=== PATIENT | male | born 1965 | race Caucasian/White ===

== ENCOUNTER 2020-03-24 02:17 | Inpatient (IN) | payer OTHER ==
[~2020-03-24] VITALS: Ht 175.3 cm; Wt 64.0 kg
[~2020-03-24 02:17] MED LIST: ANTIVERT 25MG T25 MG PO; ASPIRIN 325MG325 MG PO; BUTALB-ACETAMI1 EAC1 PO; CAMBIA50 MG PO; CIPRO500 MG PO; FIORICET TAB1 EA PO; GLIPIZIDE XL5 MG PO; GLUCOPHAGE XR500 MG PO; IMDUR ER TAB 3030 MG PO; IMDUR ER TAB 6060 MG PO; IPRAT-ALBUT 0.5-3 ML NEB; JARDIANCE25 MG PO; LANTUS100 UNIT/1 SQ; LEVOFLOXACIN250 MG PO; LIORESAL TAB 1010 MG PO; LISINOPRIL10 MG PO; LISINOPRIL20 MG PO; LOPRESSOR 25 MG25 MG PO; METFORMIN HCL850 MG PO; NEURONTIN800 MG PO; NITROGLYCERIN0.4 MG SL; NORCO 7.5-3251 EACH PO; NOVOLOG 10100 UNITS1 SQ; OMNICEF 300 MG300 MG PO; PHENERGAN 25 MG25 M1 PO; PYRIDIUM200 MG PO; REMERON30 MG PO; SYMBICORT 16010.2 GM NEB; TOPAMAX50 MG PO; TRAZODONE HCL100 MG PO; TRESIBA FL100 UNIT/1 SQ; TRULICITY0.75 MG/0. SL; TRULICITY0.75 MG/0. SQ; XARELTO 10 MG T10 MG PO; ZANTAC 7575 MG PO; ZANTAC300 MG PO; ZOCOR5 MG PO; ZOFRAN4 MG PO; ZOLOFT50 MG PO
[2020-03-24 02:53] LABS: HEMOGLOBIN 18.1 gm/dl (14.0-17.5); RED BLOOD COUNT 5.81 M/UL (4.20-5.50); WHITE BLOOD COUNT 9.4 K/UL (4.5-11.0)
[2020-03-24 03:27] LABS: BUN/CREATININE RATIO 30 (0-10)
[2020-03-24] MEDS ORDERED: BUTALB-ACETAMI1 EACH PO (05:24)
[2020-03-24 05:59] LABS: HEMOGLOBIN 17.1 gm/dl (14.0-17.5); RED BLOOD COUNT 5.51 M/UL (4.20-5.50)
[2020-03-24 06:01] LABS: WHITE BLOOD COUNT 12.5 K/UL (4.5-11.0)
[2020-03-24 06:30] LABS: BUN/CREATININE RATIO 32 (0-10)
[2020-03-25 04:54] LABS: WHITE BLOOD COUNT 9.2 K/UL (4.5-11.0)
[2020-03-25 04:55] LABS: HEMOGLOBIN 14.6 gm/dl (14.0-17.5); RED BLOOD COUNT 4.81 M/UL (4.20-5.50)
[2020-03-25] MEDS ORDERED: LIPITOR80 MG PO (06:47)
[2020-03-25] MEDS ORDERED: NUEDEXTA 20-101 EACH PO (07:50)
[2020-03-25] MEDS ORDERED: METHYLPHENIDATE10 M1 PO (18:19)
[2020-03-26 03:49] LABS: RED BLOOD COUNT 4.93 M/UL (4.20-5.50); WHITE BLOOD COUNT 7.2 K/UL (4.5-11.0)
[2020-03-26 04:10] LABS: BUN/CREATININE RATIO 29 (0-10)
[2020-03-26] MEDS ORDERED: BRILINTA90 MG PO (13:56)
[2020-03-26] MEDS ORDERED: IMDUR ER TAB 6060 MG PO (13:56)
[2020-03-26] MEDS ORDERED: COREG3.125 MG PO (13:56)
[2020-03-26] MEDS ORDERED: ASPIRIN EC81 MG PO (14:46)
== END 2020-03-26 16:06 | disposition home or self-care (01) | DRG 246 ==
LOC: ER1 02:17 → CDU 02:38 → CCU 05:24 → M/S 03-25 16:30
PROVIDERS: Emergency Medicine; Internal Medicine; ADMIT Internal Medicine Interventional Cardiology
PROC: 027034Z Dilation of Coronary Artery, One Artery with Drug-eluting Intraluminal Device, Percutaneous Approach (ICD-10-PCS; principal; 2020-03-24)
PROC: 4A023N7 Measurement of Cardiac Sampling and Pressure, Left Heart, Percutaneous Approach (ICD-10-PCS; 2020-03-24)
PROC: B211YZZ Fluoroscopy of Multiple Coronary Arteries using Other Contrast (ICD-10-PCS; 2020-03-24)
PROC: 4A0335C Measurement of Arterial Flow, Coronary, Percutaneous Approach (ICD-10-PCS; 2020-03-24)
PROC: B24BZZZ Ultrasonography of Heart with Aorta (ICD-10-PCS; 2020-03-25)
DX: T82.855A Stenosis of coronary artery stent, initial encounter (principal); I21.3 ST elevation (STEMI) myocardial infarction of unspecified site; N17.9 Acute kidney failure, unspecified; E87.1 Hypo-osmolality and hyponatremia; I50.32 Chronic diastolic (congestive) heart failure; Z20.822 Contact with and (suspected) exposure to COVID-19; E11.40 Type 2 diabetes mellitus with diabetic neuropathy, unspecified; I11.0 Hypertensive heart disease with heart failure; F11.90 Opioid use, unspecified, uncomplicated; M54.9 Dorsalgia, unspecified; E11.51 Type 2 diabetes mellitus with diabetic peripheral angiopathy without gangrene; Z79.82 Long term (current) use of aspirin; Z79.4 Long term (current) use of insulin; Z79.899 Other long term (current) drug therapy; Z86.718 Personal history of other venous thrombosis and embolism; Z95.1 Presence of aortocoronary bypass graft; Z88.2 Allergy status to sulfonamides; Z88.8 Allergy status to other drugs, medicaments and biological substances
CPT/HCPCS: ECHO; 36415; 71045; 80048; 80053; 82550; 82553; 82565; 82962; 83036; 83605; 83690; 83874; 84484; 85025; 85027; 85347; 85610; 85730; 87635; 93005; 93306; 96374; 99152; 99153; 99285; C1725; C1769; C1874; C1887; J0360; J0461; J1644; J1650; J2270; J3246; J7030; J7040; Q9965

== ENCOUNTER 2020-04-02 03:32 | Inpatient (IN) | payer OTHER ==
[~2020-04-02] VITALS: Ht 175.3 cm; Wt 78.1 kg
[~2020-04-02 03:32] MED LIST changes: +ASPIRIN EC81 MG PO; +BRILINTA90 MG PO; +BUTALB-ACETAMI1 EACH PO; +COREG3.125 MG PO; +LIPITOR80 MG PO; +METHYLPHENIDATE10 M1 PO; +NUEDEXTA 20-101 EACH PO
[2020-04-02 04:01] LABS: HEMOGLOBIN 16.8 gm/dl (14.0-17.5); RED BLOOD COUNT 5.41 M/UL (4.20-5.50); WHITE BLOOD COUNT 8.4 K/UL (4.5-11.0)
[2020-04-02 04:27] LABS: BUN/CREATININE RATIO 30 (0-10)
[2020-04-02] MEDS ORDERED: LOPRESSOR 25 MG25 MG PO (09:59)
[2020-04-02 23:16] LABS: HEMOGLOBIN 15.2 gm/dl (14.0-17.5); RED BLOOD COUNT 4.96 M/UL (4.20-5.50); WHITE BLOOD COUNT 12.3 K/UL (4.5-11.0)
[2020-04-02 23:33] LABS: BUN/CREATININE RATIO 26 (0-10)
[2020-04-03 05:00] LABS: HEMOGLOBIN 14.4 gm/dl (14.0-17.5); RED BLOOD COUNT 4.68 M/UL (4.20-5.50)
[2020-04-03 05:35] LABS: BUN/CREATININE RATIO 30 (0-10)
[2020-04-04 05:00] LABS: HEMOGLOBIN 14.6 gm/dl (14.0-17.5); RED BLOOD COUNT 4.96 M/UL (4.20-5.50); WHITE BLOOD COUNT 9.8 K/UL (4.5-11.0)
[2020-04-04 05:36] LABS: BUN/CREATININE RATIO 20 (0-10)
[2020-04-04] MEDS ORDERED: NITROGLYCERIN0.4 MG SL (10:05)
[2020-04-04] MEDS ORDERED: HUMALOG 10100 UNITS/ SC (10:10)
[2020-04-04] MEDS ORDERED: IMDUR ER TAB 3030 MG PO (10:28)
== END 2020-04-04 14:24 | disposition home or self-care (01) | DRG 246 ==
LOC: ER1 03:32 → CDU 05:59 → PROG CARE 09:31 → 2 EAST 17:16 → MED SURG 4 04-03 18:14
PROVIDERS: Emergency Medicine; Family Medicine; Internal Medicine; ADMIT Internal Medicine
PROC: B211YZZ Fluoroscopy of Multiple Coronary Arteries using Other Contrast (ICD-10-PCS; principal; 2020-04-02)
PROC: 4A023N7 Measurement of Cardiac Sampling and Pressure, Left Heart, Percutaneous Approach (ICD-10-PCS; principal; 2020-04-02)
PROC: 027034Z Dilation of Coronary Artery, One Artery with Drug-eluting Intraluminal Device, Percutaneous Approach (ICD-10-PCS; principal; 2020-04-02)
PROC: 3E02340 Introduction of Influenza Vaccine into Muscle, Percutaneous Approach (ICD-10-PCS; 2020-04-02)
DX: I97.190 Other postprocedural cardiac functional disturbances following cardiac surgery (principal); I21.A9 Other myocardial infarction type; I50.32 Chronic diastolic (congestive) heart failure; T82.855A Stenosis of coronary artery stent, initial encounter; T82.897A Other specified complication of cardiac prosthetic devices, implants and grafts, initial encounter; I25.110 Atherosclerotic heart disease of native coronary artery with unstable angina pectoris; Z95.5 Presence of coronary angioplasty implant and graft; I25.10 Atherosclerotic heart disease of native coronary artery without angina pectoris; Z95.1 Presence of aortocoronary bypass graft; I10 Essential (primary) hypertension; I25.82 Chronic total occlusion of coronary artery; E78.5 Hyperlipidemia, unspecified; F48.2 Pseudobulbar affect; I11.0 Hypertensive heart disease with heart failure; G89.29 Other chronic pain; E11.65 Type 2 diabetes mellitus with hyperglycemia; Z79.899 Other long term (current) drug therapy; Z79.4 Long term (current) use of insulin; Z79.01 Long term (current) use of anticoagulants; Z79.82 Long term (current) use of aspirin; I45.10 Unspecified right bundle-branch block; I73.9 Peripheral vascular disease, unspecified; Z86.14 Personal history of Methicillin resistant Staphylococcus aureus infection; Z88.2 Allergy status to sulfonamides; Z88.8 Allergy status to other drugs, medicaments and biological substances; Z83.3 Family history of diabetes mellitus; Z82.49 Family history of ischemic heart disease and other diseases of the circulatory system; Z20.822 Contact with and (suspected) exposure to COVID-19; Z95.820 Peripheral vascular angioplasty status with implants and grafts; I25.2 Old myocardial infarction; Z23 Encounter for immunization
CPT/HCPCS: ECHO; 36415; 71045; 80048; 80053; 82550; 82553; 82962; 83690; 83874; 84484; 85025; 85027; 85347; 85730; 87635; 90471; 90686; 93005; 93306; 96365; 96368; 96375; 96376; 97162; 99285; C1725; C1769; C1874; C1887; C9600; G0008; J1170; J1644; J1650; J2270; J2405; J7030; J7040

== ENCOUNTER 2021-02-15 08:49 | Emergency (ER) | payer OTHER ==
[~2021-02-15 08:49] MED LIST changes: +HUMALOG 10100 UNITS/ SC
[2021-02-15 10:33] LABS: RED BLOOD COUNT 5.82 M/UL (4.20-5.50); WHITE BLOOD COUNT 5.3 K/UL (4.5-11.0)
[2021-02-15 11:15] LABS: BUN/CREATININE RATIO 25 (0-10)
[2021-02-15] MEDS ORDERED: DOXYCYCLINE HY100 MG PO (11:54)
== END 2021-02-15 14:00 | disposition home or self-care (01) ==
LOC: ER1 08:49
PROVIDERS: Emergency Medicine
DX: N48.89 Other specified disorders of penis (principal); R91.1 Solitary pulmonary nodule; M51.27 Other intervertebral disc displacement, lumbosacral region; E11.51 Type 2 diabetes mellitus with diabetic peripheral angiopathy without gangrene; I10 Essential (primary) hypertension; Z95.1 Presence of aortocoronary bypass graft; Z95.5 Presence of coronary angioplasty implant and graft
CPT/HCPCS: 76870; 80053; 81001; 85025; 87040; 96374; 96375; 99284; J0696; J2270; J2405

== ENCOUNTER → 2021-05-22 | Outpatient (CLI) | payer OTHER ==
[~2021-05-22] MED LIST changes: +DOXYCYCLINE HY100 MG PO
[2021-05-22 13:26] LABS: BUN/CREATININE RATIO 20 (0-10)
[2021-05-23 11:17] LABS: CREATININE, URINE 41.1 mg/dL (Not Estab.)
== END ==
LOC: LAB 12:03
PROVIDERS: Nurse Practitioner
DX: E11.8 Type 2 diabetes mellitus with unspecified complications (principal)
CPT/HCPCS: 36415; 80048; 80061; 82043; 82570; 82607; 84443

== ENCOUNTER 2021-08-02 18:15 | Inpatient (IN) | payer OTHER ==
[~2021-08-02] VITALS: Ht 175.3 cm; Wt 88.0 kg
[~2021-08-02 18:15] MED LIST changes: -GLIPIZIDE XL5 MG PO; +GLIPIZIDE5 MG PO; -GLUCOPHAGE XR500 MG PO; +METFORMIN HCL500 MG PO
[2021-08-02 18:54] LABS: HEMOGLOBIN 17.5 gm/dl (14.0-17.5); RED BLOOD COUNT 5.59 M/UL (4.20-5.50); WHITE BLOOD COUNT 13.1 K/UL (4.5-11.0)
[2021-08-02 19:29] LABS: BUN/CREATININE RATIO 22 (0-10)
[2021-08-03 06:06] LABS: WHITE BLOOD COUNT 13.8 K/UL (4.5-11.0)
[2021-08-03 06:07] LABS: HEMOGLOBIN 15.4 gm/dl (14.0-17.5); RED BLOOD COUNT 4.97 M/UL (4.20-5.50)
[2021-08-03 06:26] LABS: BUN/CREATININE RATIO 21 (0-10)
[2021-08-03] MEDS ORDERED: JARDIANCE25 MG PO (10:26)
[2021-08-03] MEDS ORDERED: KETOROLAC TROME10 ML OP (10:26)
[2021-08-03] MEDS ORDERED: LIDOCAINE1 EAC1 TP (10:34)
[2021-08-03 19:04] LABS: CANDIDA ALBICANS Not Detected (Negative); CANDIDA KRUSEI Not Detected (Negative); CANDIDA TROPICALIS Not Detected (Negative); ESCHERICHIA COLI Not Detected (Negative); HAEMOPHILUS INFLUENZAE Not Detected (Negative); KLEBSIELLA OXYTOCA Not Detected (Negative); KLEBSIELLA PNEUMONIAE Not Detected (Negative); KPC-CARBAPENEM-RESISTANCE GENE Not Detected (Negative); PROTEUS Not Detected (Negative); PSEUDOMONAS AERUGINOSA Not Detected (Negative); SERRATIA MARCESANS Not Detected (Negative); STREP AGALACTIAE (GROUP B) Not Detected (Negative); STREP PYOGENES (GROUP A) Not Detected (Negative); STREPTOCOCCUS Not Detected (Negative); vanA/B (VANCOMYCIN RESIST GENE Not Detected (Negative)
[2021-08-03 20:14] LABS: STAPHYLOCOCCUS DETECTED (Negative); STAPHYLOCOCCUS AUREUS DETECTED (Negative)
[2021-08-04 03:12] LABS: HEMOGLOBIN 17.3 gm/dl (14.0-17.5); WHITE BLOOD COUNT 13.8 K/UL (4.5-11.0)
[2021-08-04 03:18] LABS: RED BLOOD COUNT 5.54 M/UL (4.20-5.50)
[2021-08-04 03:39] LABS: BUN/CREATININE RATIO 22 (0-10)
[2021-08-05 03:09] LABS: HEMOGLOBIN 17.9 gm/dl (14.0-17.5); RED BLOOD COUNT 5.76 M/UL (4.20-5.50); WHITE BLOOD COUNT 10.7 K/UL (4.5-11.0)
[2021-08-05 04:09] LABS: BUN/CREATININE RATIO 24 (0-10)
[2021-08-06 05:34] LABS: BUN/CREATININE RATIO 27 (0-10)
[2021-08-07 05:38] LABS: BUN/CREATININE RATIO 25 (0-10)
[2021-08-07] MEDS ORDERED: ZYVOX600 MG PO (13:20)
[2021-08-07] MEDS ORDERED: FLOMAX 0.4 MG0.4 MG PO (13:20)
[2021-08-07] MEDS ORDERED: TOPROL XL25 MG PO (13:20)
[2021-08-07] MEDS ORDERED: LISINOPRIL5 MG PO (13:34)
== END 2021-08-07 14:35 | disposition home or self-care (01) | DRG 872 ==
LOC: ER1 18:15 → M/S 20:15 → CDU 20:15 → M/S 08-03 00:01
PROVIDERS: Internal Medicine; ADMIT Internal Medicine
PROC: 3E03329 Introduction of Other Anti-infective into Peripheral Vein, Percutaneous Approach (ICD-10-PCS; principal; 2021-08-02)
PROC: B24BZZZ Ultrasonography of Heart with Aorta (ICD-10-PCS; 2021-08-04)
DX: A41.02 Sepsis due to Methicillin resistant Staphylococcus aureus (principal); I50.32 Chronic diastolic (congestive) heart failure; N13.6 Pyonephrosis; N40.0 Benign prostatic hyperplasia without lower urinary tract symptoms; E11.51 Type 2 diabetes mellitus with diabetic peripheral angiopathy without gangrene; I25.10 Atherosclerotic heart disease of native coronary artery without angina pectoris; Z20.822 Contact with and (suspected) exposure to COVID-19; I73.9 Peripheral vascular disease, unspecified; E78.5 Hyperlipidemia, unspecified; J44.9 Chronic obstructive pulmonary disease, unspecified; E11.65 Type 2 diabetes mellitus with hyperglycemia; Z95.828 Presence of other vascular implants and grafts; Z86.14 Personal history of Methicillin resistant Staphylococcus aureus infection; Z87.440 Personal history of urinary (tract) infections; Z90.89 Acquired absence of other organs; Z95.5 Presence of coronary angioplasty implant and graft; Z88.2 Allergy status to sulfonamides; Z88.8 Allergy status to other drugs, medicaments and biological substances; Z82.49 Family history of ischemic heart disease and other diseases of the circulatory system; Z83.3 Family history of diabetes mellitus; Z79.4 Long term (current) use of insulin; Z79.899 Other long term (current) drug therapy; Z79.82 Long term (current) use of aspirin
CPT/HCPCS: ECHO; 36415; 80048; 80053; 80202; 81001; 82550; 82553; 82962; 83036; 83605; 83690; 83735; 84484; 85025; 86140; 87040; 87077; 87086; 87150; 87186; 93306; 96361; 96374; 96375; 99285; J0692; J0696; J1650; J2185; J2270; J2543; J3370; J7030; J7070

== ENCOUNTER 2021-11-13 18:47 | Emergency (ER) | payer OTHER ==
[~2021-11-13 18:47] MED LIST changes: +FLOMAX 0.4 MG0.4 MG PO; +KETOROLAC TROME10 ML OP; +LIDOCAINE1 EAC1 TP; +LISINOPRIL5 MG PO; +TOPROL XL25 MG PO; +ZYVOX600 MG PO
== END 2021-11-13 20:18 | disposition left against medical advice (07) ==
LOC: ER1 18:47
DX: Z53.21 Procedure and treatment not carried out due to patient leaving prior to being seen by health care provider (principal)

== ENCOUNTER 2021-11-16 23:48 | Emergency (ER) | payer MEDICARE, OTHER ==
[2021-11-17 00:34] LABS: HEMOGLOBIN 15.6 gm/dl (14.0-17.5); RED BLOOD COUNT 4.98 M/UL (4.20-5.50); WHITE BLOOD COUNT 12.6 K/UL (4.5-11.0)
[2021-11-17 00:48] LABS: BUN/CREATININE RATIO 16 (0-10)
[2021-11-17] MEDS ORDERED: ENULOSE10 GM/15 M PO (01:50)
== END 2021-11-17 02:45 | disposition home or self-care (01) ==
LOC: ER1 23:48
PROVIDERS: Emergency Medicine
DX: K59.00 Constipation, unspecified (principal); I11.9 Hypertensive heart disease without heart failure; E11.9 Type 2 diabetes mellitus without complications; Z95.5 Presence of coronary angioplasty implant and graft; Z95.1 Presence of aortocoronary bypass graft
CPT/HCPCS: 71045; 74018; 80053; 81001; 83690; 84484; 85025; 93005; 96374; 96375; 99284; J1885; J2765